=== PATIENT | male | born 1950 | race Caucasian/White ===

== ENCOUNTER 2016-09-24 10:37 | Emergency (ER) | payer OTHER ==
[~2016-09-24] VITALS: Ht 170.2 cm; Wt 70.2 kg
[~2016-09-24 10:37] MED LIST: AEROECLIPSE1 EACH MC; AMLODIPINE BESYL5 MG PO; ASPIR-TRIN325 M1 PO; ATORVASTATIN CA80 MG PO; BREO ELLIPTA 21 EACH IH; BUMETANIDE1 MG PO; CARVEDILOL25 MG PO; CEFDINIR300 MG PO; Chronulac,Cephulac,E PO; DUONEB 2.5-0.5 M3 ML AEROSOL; HYDROCHLOROTHIA25 MG PO; K-DUR10 MEQ PO; LISINOPRIL5 MG PO; MUCINEX600 MG PO; NITROSTAT0.4 MG SL; PANTOPRAZOLE SO40 MG PO; PREDNISONE10 MG PO; SPIRIVA1 INHALATI IH; VENTOLIN HFA18 GM IH
[2016-09-24 12:36] LABS: BASOPHIL COUNT 0.1 K/uL (0-0.1); EOSINOPHIL (%) 1.9 % (0-5); EOSINOPHIL COUNT 0.1 K/uL (0-0.3); HEMATOCRIT 43.1 % (38.0-50.0); IMMATURE GRANULOCYTE (%) 0.3 % (0.0-0.7); LYMPHOCYTE COUNT 1.3 K/uL (1.0-2.8); MCH 28.8 PG (29.0-34.0); MCHC 32.3 G/DL (30.0-36.0); MCV 89.4 FL (86-99); MEAN PLAT.VOLUME 9.4 uM^3 (9.0-12.4); MONOCYTE (%) 6.4 % (3-12); MONOCYTE COUNT 0.4 K/uL (0-0.8); NEUTROPHIL (%) 71.8 % (45-76); PLATELET COUNT 196 K/uL (156-360); RBC DIS.WIDTH-CV 13.7 % (11.8-14.6); RBC DIS.WIDTH-SD 45.3 % (39-53); RED BLOOD COUNT 4.82 M/uL (4.00-5.50); WHITE BLOOD COUNT 6.9 K/uL (4.1-10.2)
[2016-09-24 12:47] LABS: INTER. NORMALIZED RATIO 1.1; PROTHROMBIN TIME 10.7 (9.2-11.2); PTT 26.6 (25-32)
[2016-09-24 12:50] LABS: CHLORIDE 105 mEq/L (99-109); POTASSIUM 4.7 mEq/L (3.7-5.4); SODIUM 139 mEq/L (136-147)
[2016-09-24 12:52] LABS: GLUCOSE 115 mg/dL (70-99)
[2016-09-24 12:53] LABS: ANION GAP 6 MEQ/L (2-14)
[2016-09-24 12:56] LABS: GFR ESTIMATE (CALCULATED) > 59 mL/min/; TROP-I INTERPRETATION NEGATIVE; TROPONIN-I < 0.01 ng/mL (0.0-0.30); UREA NITROGEN (BUN) 15 mg/dL (9-23)
[2016-09-24 13:45] VITALS: BP 114/73
== END 2016-09-24 13:52 | disposition left against medical advice (07) ==
LOC: EME → EDBD 10:37 → EME 10:37
PROVIDERS: Emergency Medicine
DX: R42 Dizziness and giddiness (principal); E11.9 Type 2 diabetes mellitus without complications; J44.9 Chronic obstructive pulmonary disease, unspecified; E78.5 Hyperlipidemia, unspecified; I10 Essential (primary) hypertension; I25.2 Old myocardial infarction; Z98.61 Coronary angioplasty status; Z79.82 Long term (current) use of aspirin; F17.200 Nicotine dependence, unspecified, uncomplicated
CPT/HCPCS: 71010; 80048; 84484; 85025; 85610; 85730; 93005; 99281; 99285

== ENCOUNTER 2018-02-04 08:22 | Inpatient (IN) | payer OTHER ==
[~2018-02-04] VITALS: Ht 170.2 cm; Wt 58.2 kg
[2018-02-04 09:20] LABS: BASOPHIL (%) 0.3 % (0-1); EOSINOPHIL (%) 0.4 % (0-5); HEMATOCRIT 41.6 % (38.0-50.0); HEMOGLOBIN 14.1 G/DL (12.5-16.6); IMMATURE GRANULOCYTE (%) 0.4 % (0.0-0.7); LYMPHOCYTE (%) 9.9 % (15-42); LYMPHOCYTE COUNT 0.9 K/uL (1.0-2.8); MCH 29.6 PG (29.0-34.0); MCHC 33.9 G/DL (30.0-36.0); MCV 87.4 FL (86-99); MONOCYTE (%) 8.4 % (3-12); MONOCYTE COUNT 0.8 K/uL (0-0.8); NEUTROPHIL (%) 80.6 % (45-76); NEUTROPHIL COUNT 7.4 K/uL (1.8-6.4); PLATELET COUNT 204 K/uL (156-360); RBC DIS.WIDTH-CV 13.2 % (11.8-14.6); RBC DIS.WIDTH-SD 42.3 % (39-53); RED BLOOD COUNT 4.76 M/uL (4.00-5.50); WHITE BLOOD COUNT 9.2 K/uL (4.1-10.2)
[2018-02-04 09:27] LABS: CHLORIDE 99 mEq/L (99-109); POTASSIUM 4.1 mEq/L (3.7-5.4); SODIUM 138 mEq/L (136-147)
[2018-02-04 09:29] LABS: GLUCOSE 101 mg/dL (70-99)
[2018-02-04 09:33] LABS: CREATININE 0.8 mg/dL (0.6-1.3); GFR ESTIMATE (CALCULATED) > 59 mL/min/ (58.99-99999); UREA NITROGEN (BUN) 16 mg/dL (9-23)
[2018-02-04] MEDS ORDERED: DUONEB 2.5-0.5 M3 ML AEROSOL (11:11)
[2018-02-04] MEDS ORDERED: DULERA 200 MCG/13 GM IH (11:12)
[2018-02-04] MEDS ORDERED: COLACE100 MG PO (11:12)
[2018-02-04] MEDS ORDERED: TUDORZA PRESS400 MCG IH (11:12)
[2018-02-04] MEDS ORDERED: NORVASC2.5 MG PO (11:13)
[2018-02-04 17:53] VITALS: BP 141/73
[2018-02-04 23:39] VITALS: BP 115/62
[2018-02-05 04:30] VITALS: BP 117/70
[2018-02-05 07:33] VITALS: BP 121/68
[2018-02-05 10:14] VITALS: BP 115/61
[2018-02-05 15:33] VITALS: BP 122/69
[2018-02-05 19:19] VITALS: BP 122/63
[2018-02-05 23:12] VITALS: BP 118/57
[2018-02-06 04:25] VITALS: BP 100/55
[2018-02-06 08:02] VITALS: BP 99/55
[2018-02-06 11:21] VITALS: BP 100/56
[2018-02-06 19:44] VITALS: BP 120/64
[2018-02-06 23:42] VITALS: BP 99/57
[2018-02-07 04:09] VITALS: BP 108/55
[2018-02-07 07:42] VITALS: BP 107/57
[2018-02-07 15:57] VITALS: BP 112/61
[2018-02-07] MEDS ORDERED: AUGMENTIN500 MG PO (18:49)
== END 2018-02-07 19:47 | disposition home or self-care (01) | DRG 192 ==
LOC: EME 08:22 → 3EAST 15:32 → EDOF 15:32 → ENRESERV 15:35 → 3EAST 17:21
PROVIDERS: Emergency Medicine; Internal Medicine
DX: J44.1 Chronic obstructive pulmonary disease with (acute) exacerbation (principal); J44.0 Chronic obstructive pulmonary disease with (acute) lower respiratory infection; J20.9 Acute bronchitis, unspecified; I10 Essential (primary) hypertension; E78.5 Hyperlipidemia, unspecified; E11.9 Type 2 diabetes mellitus without complications; F17.200 Nicotine dependence, unspecified, uncomplicated; Z95.5 Presence of coronary angioplasty implant and graft; I25.2 Old myocardial infarction; Z79.82 Long term (current) use of aspirin
CPT/HCPCS: 71045; 80048; 82948; 85025; 87040; 87801; 93005; 94640; 94664; 94799; 99281; 99285; J0456; J0692; J0696; J1644; J3370; J7512